=== PATIENT | male | born 1940 | race Caucasian/White ===

== ENCOUNTER 2019-03-25 04:52 | Outpatient (CLI) | payer MEDICARE, BC ==
[2019-03-25 10:16] LABS: Hemoglobin 14.4 g/dL (14.0-18.0); Mean Corpuscular Hemoglobin 34.3 pg (27.0-31.0); Mean Platelet Volume 7.5 fL (7.4-10.4); Platelet Count 196 thou/uL (130-400); RBC Distribution Width 11.7 % (11.5-14.5)
[2019-03-25 10:23] LABS: RBC/HPF 0-3 HPF (0-3); WBC/HPF None Seen HPF (0-3)
[2019-03-25 10:24] LABS: Bacteria/HPF None Seen HPF (None Seen); Hyaline Casts/LPF NONE SEEN LPF (0-3 Hyaline); Squamous Epithelial 0-3 HPF (0-3)
[2019-03-25 10:30] LABS: Prothrombin Time 13.4 SEC (12.0-14.7)
[2019-03-25 10:31] LABS: PTT 29.7 SEC (22.9-36.1)
[2019-03-25 10:38] LABS: Anion Gap 14 mmol/L (10-20); BUN (Urea Nitrogen) 19 mg/dL (8.4-25.7); Calc. Creatinine Clearance 0 mL/min (70-130); Calcium 9.2 mg/dL (7.8-10.44); Carbon Dioxide 27 mmol/L (23-31); Chloride 104 mmol/L (98-107); Estimated GFR-MDRD 72; Glucose 101 mg/dL (83-110); Potassium 3.6 mmol/L (3.5-5.1); Sodium 141 mmol/L (136-145)
== END 2019-03-25 04:53 | disposition home or self-care (01) ==
LOC: LABBT 04:52
PROVIDERS: ATTEND Urology
DX: Z01.818 Encounter for other preprocedural examination (principal); N40.0 Benign prostatic hyperplasia without lower urinary tract symptoms; N52.01 Erectile dysfunction due to arterial insufficiency
CPT/HCPCS: 80048; 81015; 85027; 85610; 85730; 87086; 93005; 93010

== ENCOUNTER 2019-04-02 06:35 | Day surgery (SDC) | payer MEDICARE, BC ==
[2019-03-25 10:11] VITALS: BMI 25.8
[2019-04-02] MEDS ORDERED: Levofloxacin 500 mg/D5W 100 ml Premix Bag ONE (08:04)
[2019-04-02] MEDS ORDERED: Propofol 500 MG/50 ML VIAL ONE (08:26)
[2019-04-02] MEDS ORDERED: Midazolam HCl 2 mg/2 ml Vial ONE (08:26)
[2019-04-02] MEDS ORDERED: Fentanyl 100 MCG/2 ML VIAL ONE (08:26)
[2019-04-02] MEDS ORDERED: B & O ONE (10:58)
[2019-04-02] MEDS ORDERED: Oxybutynin 5 MG TAB ONE (11:06)
[2019-04-02] MEDS ORDERED: Phenazopyridine HCl 97.5 MG TABLET ONE ×2 (11:16→12:20)
--- NOTE | 2019-04-02 15:01 | OP ---
DATE OF PROCEDURE: 04/02/2019 SERVICE: Urology. PREOPERATIVE DIAGNOSIS: Benign prostatic hyperplasia with lower urinary tract symptoms. POSTOPERATIVE DIAGNOSIS: Benign prostatic hyperplasia with lower urinary tract symptoms. PROCEDURE PERFORMED: Prostatic urethral lift. INDICATION FOR PROCEDURE: Mr. Camarillo is a 78-year-old white male, who initially presented to me with urinary complaints. He is taking Rapaflo with only partial resolution of his urinary symptoms. We discussed both UroLift and transurethral resection of the prostate and after discussion and evaluation with cystoscopy and ultrasound, he elected to go with the UroLift procedure. His prostate is on the larger side, but it should still be amenable for the UroLift. All risks and benefits have been discussed and he has agreed to proceed forward. DESCRIPTION OF PROCEDURE: After identification of armband and verification of consent, the patient was brought back to the operating room, where he underwent total intravenous anesthesia. He was then placed in dorsal lithotomy position and prepped and draped in usual sterile fashion. After appropriate time-out, a 20-[place] rigid cystoscope with visual obturator. Attachment was used to evaluate the urethra and prostate. The prostate was hypertrophic and appeared consistent with prior cystoscopy. After cystoscopy and evaluation of the prostate, the UroLift device was attached onto the cystoscope. After draining the bladder and removing the obturator. Initial implant was done on the right side just distal to the bladder neck by about 1.5 cm. I dropped my hand by approximately 30 degrees to get an anterior channel with significant compression of the lateral lobe of the prostate. The first implant was deployed by initially finding the needle, which went nicely to the outside capsule of the prostate. The Nitinol tab was then deployed on the outside of the capsule of the prostate and the suture was advanced approximately by 2 to 3 mm until the white marker was seen through the keyhole. The suture was then cut using the release mechanism on the UroLift device. The scope was then advanced back into the bladder and the UroLift device removed and the bladder drained. This was repeated for 5 additional implants with another implant being done on the contralateral aspect distal to the bladder neck by about 1.5 cm. Two implants done on the lateral aspect near the level of the verumontanum and additional implants in the midsection approximately stacked somewhat below the original implants closer to the bladder neck. After completion, there was a moderate amount of blood, but the prostate channel was wide open. A 70-degree lens was then used to investigate the inside of the bladder and there was no suture or any material noted traversing through the prostate into the bladder. I was satisfied that there was good placement of the implants without bladder injuries or bone strikes. The bladder was left full and the cystoscope removed. A 20-[place] St catheter was advanced with ease into the bladder with 10 mL of sterile water placed in the balloon. The patient was then taken out of positioning, awakened, and taken back to Day Stay. COMPLICATIONS: None. ESTIMATED BLOOD LOSS: Minimal. RETAINED TUBES AND DRAINS: A 20-[place] St catheter. IMPLANTS USED: 6. DISPOSITION: The patient will remain in Day Stay for approximately an hour. We will then evaluate to see if his catheter can be removed. If so, we will do a void trial and so long as the patient can urinate, he can go home. If he is deemed to be too much hematuria, the catheter will be kept in and the patient will be discharged with a catheter and will come back tomorrow for a void trial. Job ID: [id number]
[2019-04-02] MEDS ORDERED: PROPOFOL 200 MG/20 ML VIAL ONE (17:11)
== END 2019-04-02 14:41 | disposition home or self-care (01) ==
LOC: SDC 06:35
PROVIDERS: ATTEND Urology
PROC: 0T7D8DZ Dilation of Urethra with Intraluminal Device, Via Natural or Artificial Opening Endoscopic (ICD-10-PCS; principal; 2019-04-02)
DX: N40.1 Benign prostatic hyperplasia with lower urinary tract symptoms (principal); I10 Essential (primary) hypertension; E78.5 Hyperlipidemia, unspecified; Z79.82 Long term (current) use of aspirin; Z79.899 Other long term (current) drug therapy
CPT/HCPCS: C1889; C9740; J1956; J2250; J2704; J3010